=== PATIENT | female | born 1985 | race Caucasian/White ===

== ENCOUNTER 2020-10-22 13:57 | Emergency (ER) | payer BC ==
[2020-10-22] MEDS ORDERED: Magnesium 2 GM/50 ML BAG (IN WATER) ONE (14:54)
[2020-10-22] MEDS ORDERED: Metoclopramide HCl 10 MG/2 ML VIAL ONE (14:54)
[2020-10-22] MEDS ORDERED: diphenhydrAMINE 50 MG/ML VIAL ONE (14:54)
== END 2020-10-22 16:40 | disposition home or self-care (01) ==
LOC: ERS 13:57
DX: R51.9 Headache, unspecified (principal)
CPT/HCPCS: 96365; 96368; 96375; J1200; J2765; J3475